=== PATIENT | female | born 1995 | race Caucasian/White ===

== ENCOUNTER 2017-06-28 12:34 | Outpatient (CLI) | payer MEDICAID | END 2017-06-28 16:30 | disposition home or self-care (01) | LOC: OBT 12:34 → L-D 12:36 → OBT 16:30 | DX: O36.8120 Decreased fetal movements, second trimester, not applicable or unspecified (principal); Z3A.22 22 weeks gestation of pregnancy | CPT/HCPCS: 76817; 76818 ==